=== PATIENT | female | born 1945 | race Caucasian/White ===

== ENCOUNTER 2017-08-17 09:30 | Day surgery (SDC) | payer BC, MEDICARE ==
--- NOTE | 2017-08-15 15:48 | HP ---
DATE OF SURGERY: 08/17/2017 ADMISSION DIAGNOSIS: Possible fistula. ANTICIPATED PROCEDURE: Colonoscopy. HISTORY OF PRESENT ILLNESS: Ultrasound positive. Seen and examined. Procedure discussed in detail and wished to proceed PAST MEDICAL HISTORY: ALLERGIES: NONE. MEDICATIONS: Multiple. PAST SURGICAL HISTORY: Back surgery, hysterectomy, leg ulcers. SOCIAL HISTORY: One pack per day. ETOH negative. FAMILY HISTORY: Negative. REVIEW OF SYSTEMS: Negative. PHYSICAL EXAMINATION: VITAL SIGNS: Normal. CHEST: Clear. COR: Regular. ABDOMEN: No palpable organomegaly or mass. IMPRESSION: Possible fistula. PLAN: Requiring colonoscopic examination.
[~2017-08-17 09:30] MED LIST: Lactated Ringers 1,000 ML IV SCH
[2017-08-17] MEDS ORDERED: DIPRIVAN 200 MG/20 ML IV ONE (09:31)
[2017-08-17] MEDS ORDERED: Lactated Ringers 1,000 ML IV ONE (09:44)
[2017-08-17] MEDS ORDERED: GlucaGen 1 MG IM ONE (13:20)
[2017-08-17 15:09] VITALS: PULSE 78
[2017-08-17 15:13] VITALS: BP 134/68
[2017-08-17 15:19] VITALS: O2SAT 97
--- NOTE | 2017-08-18 07:48 | OP ---
SURGERY DATE/TIME: 08/17/2017 130 PREOPERATIVE DIAGNOSIS: Possible fistula. POSTOPERATIVE DIAGNOSES: 1) No absolute fistula but the patient did have a severely diverticular stenotic segment of the sigmoid about 10 inches long and is certainly is a candidate for one. 2) Moderate internal-external hemorrhoids. 3) A 1.2 cm polyp of the cecum. PROCEDURE: Colonoscopy complete to cecum with hot polypectomy x1. SURGEON: Ean Theodore M.D. ANESTHESIA: MAC. COMPLICATIONS: None. CONDITION: Stable. INDICATION: The patient has possible fistula. DESCRIPTION OF PROCEDURE: He was taken to the endoscopy suite. MAC sedation provided. Anal digital examination satisfactory. Scope introduced. Scope advanced to the cecum. A 1.2 cm polyp in the cecum was taken with hot biopsy forceps to extinction. On circumferential withdrawal the sigmoid had a 10 inch segment of narrowing from diverticulosis. There were moderate internal and external hemorrhoids. A polyp had been taken so barium enema could not be ordered today. We will order a barium enema in the near future about six weeks from now.
== END 2017-08-17 15:00 | disposition home or self-care (01) ==
LOC: SDC 09:30
PROVIDERS: ATTEND Surgery
PROC: 0DBH8ZX Excision of Cecum, Via Natural or Artificial Opening Endoscopic, Diagnostic (ICD-10-PCS; principal; 2017-08-17)
DX: K63.5 Polyp of colon (principal); K57.30 Diverticulosis of large intestine without perforation or abscess without bleeding; K64.4 Residual hemorrhoidal skin tags; K64.8 Other hemorrhoids
CPT/HCPCS: 99100; J1610; J2704

== ENCOUNTER 2020-01-16 06:50 | Day surgery (SDC) | payer MEDICARE, BC ==
--- NOTE | 2019-12-13 11:36 | HP ---
DATE OF SURGERY: 12/19/2019 HISTORY OF PRESENT ILLNESS: The patient presents for follow up colonoscopy. She had a Garcia's procedure about 2018. Denies any current symptoms. PAST MEDICAL HISTORY: Hypothyroid. Neuropathy. Reflux. Hyperlipidemia. Anxiety. PAST SURGICAL HISTORY: Cholecystectomy. Garcia's procedure. Hysterectomy. Varicose vein stripping. ALLERGIES: NKDA. MEDICATIONS: Eliquis. Levothyroxine. Gabapentin. Omeprazole. Vitamin B. Atorvastatin. Tramadol. Xanax. FAMILY HISTORY: None reported. SOCIAL HISTORY: Smokes one and a half packs of cigarettes per day. Denies alcohol. REVIEW OF SYSTEMS: CONSTITUTIONAL: Denies fever or chills. CHEST: Denies shortness of breath. CVS: Denies chest pain. ABDOMEN: Denies nausea, vomiting, diarrhea, constipation or rectal bleeding. : Denies dysuria or hematuria. PHYSICAL EXAMINATION: GENERAL: No acute distress. CHEST: Nonlabored. No shortness of breath. CVS: Regular rate and rhythm. ABDOMEN: Soft, nontender to palpation. EXTREMITIES: No edema. NEUROLOGIC: Alert. PSYCHIATRIC: Appropriate. IMPRESSION: Status post Garcia's procedure. PLAN: Colonoscopy through ostomy and rectum. As dictated by Omaira Morales NP.
--- NOTE | 2020-01-13 12:25 | HP ---
DATE OF SURGERY: 01/16/2020 HISTORY OF PRESENT ILLNESS: The patient presents to the office in need of endoscopy. She has a history of a Garcia's procedure for a perforated diverticulitis with abscess and enterocolonic fistula. This was back in December 2017. It does not appear that she has had a colonoscopy since she had the surgery. We have attempted to try and she had some issues taking the prep. She denies any signs or symptoms currently. PAST MEDICAL HISTORY: Hypothyroidism. Coronary artery disease. Reflux. Depression. Hypertension. Heart disease. PAST SURGICAL HISTORY: Cholecystectomy. Garcia's procedure. Hysterectomy. Varicose vein procedure. ALLERGIES: NKDA. MEDICATIONS: Eliquis, levothyroxine, gabapentin, clonidine, omeprazole, vitamin D, atorvastatin, Xanax, Toprol, benazepril. FAMILY HISTORY: None reported. SOCIAL HISTORY: Smokes a half packs of cigarettes per day. REVIEW OF SYSTEMS: CONSTITUTIONAL: Denies fever or chills. CHEST: Denies shortness of breath. CVS: Denies chest pain. ABDOMEN: Denies nausea, vomiting, diarrhea, constipation or rectal bleeding. : Denies dysuria or hematuria. PHYSICAL EXAMINATION: GENERAL: No acute distress. CHEST: Nonlabored. No shortness of breath. CVS: Regular rate and rhythm. ABDOMEN: Soft, nontender to palpation. Ostomy pink. EXTREMITIES: No edema. NEUROLOGIC: Alert. PSYCHIATRIC: Appropriate. IMPRESSION: History of Garcia's procedure for perforated diverticulitis with abscess and enterocolonic fistula repair. No colonoscopy since procedure. PLAN: Colonoscopy per ostomy and rectum with Dr. Ean Theodore. As dictated by Omaira Morales NP.
[2020-01-16] MEDS ORDERED: Lactated Ringers 1,000 ML IV ONE (08:18)
[2020-01-16] MEDS ORDERED: Lactated Ringers 1,000 ML IV SCH (08:30)
[2020-01-16] MEDS ORDERED: Ketamine HCl 50 MG/ML ONE (09:17)
[2020-01-16] MEDS ORDERED: DIPRIVAN 200 MG/20 ML IV ONE (09:17)
[2020-01-16] MEDS ORDERED: APRESOLINE 20 MG/ML INJ IV ONE (10:30)
[2020-01-16] MEDS ORDERED: APRESOLINE 20 MG/ML INJ ONE (10:32)
[2020-01-16 11:08] VITALS: O2SAT 97
[2020-01-16 11:20] VITALS: BP 140/70; PULSE 67
--- NOTE | 2020-01-22 09:37 | OP ---
SURGERY DATE/TIME: 01/16/2020919 PREOPERATIVE DIAGNOSIS: Screening colonoscopy, previous colon resection. POSTOPERATIVE DIAGNOSES: 1) Anal spasm. 2) Mid transverse colon polyp x2. PROCEDURE: Colonoscopy both through anus and through ostomy with complete exam to cecum. SURGEON: Ean Theodore M.D. PREP: Excellent. ANESTHESIA: MAC. COMPLICATIONS: None. CONDITION: Stable. INDICATION: A 74 year old requiring evaluation. DESCRIPTION OF PROCEDURE: Taken to endoscopy. MAC sedation provided. Scope introduced through rectum. There was anal spasm this was broken. The scope was placed. The exam was satisfactory. The colostomy was then cannulated. Scope placed to the cecum. On circumferential withdrawal, base of the cecum, ileocecal valve, appendiceal orifice, ascending, hepatic, mid transverse. Two polyps were taken with hot biopsy forceps to extinction. Scope withdrawn. The patient tolerated the procedure satisfactorily. She initially had a Garcia procedure secondary to diverticulitis with abscess. There was no intent of taking this colostomy down.
== END 2020-01-16 11:30 | disposition home or self-care (01) ==
LOC: SDC 06:50
PROVIDERS: ATTEND Surgery
DX: Z09 Encounter for follow-up examination after completed treatment for conditions other than malignant neoplasm (principal); K59.4 Anal spasm; D12.3 Benign neoplasm of transverse colon; Z90.49 Acquired absence of other specified parts of digestive tract; Z79.899 Other long term (current) drug therapy; Z79.01 Long term (current) use of anticoagulants
CPT/HCPCS: 88305; 93005; 99100; J0360; J2704

== ENCOUNTER 2021-08-30 12:40 | Day surgery (SDC) | payer MEDICARE, BC ==
--- NOTE | 2021-08-26 11:56 | HP ---
DATE OF SURGERY: 08/30/2021 HISTORY OF PRESENT ILLNESS: The patient presented for Port-A-Cath. She is a patient of Dr. Darby. The patient has lung cancer. The patient needs access for chemotherapy infusions. The patient is also due for colonoscopy at this time. The patient has a history of Deborah's procedure for diverticulitis with abscess and no colonic fistula. PAST MEDICAL HISTORY: Coronary artery disease, hyperlipidemia, gastroesophageal reflux disease, anxiety, hypertension, hypothyroidism. PAST SURGICAL HISTORY: Cholecystectomy. Cardiac stents. Deborah's procedure. Hysterectomy. ALLERGIES: NKDA. MEDICATIONS: Eliquis, levothyroxine, Cardura, gabapentin, omeprazole, vitamin D, atorvastatin, Xanax, metoprolol, benazepril. FAMILY HISTORY: Cancer. SOCIAL HISTORY: Smokes half pack a day. REVIEW OF SYSTEMS: CONSTITUTIONAL: Denies fever or chills. CHEST: Denies shortness of breath. CVS: Denies chest pain. ABDOMEN: Denies abdominal pain, nausea, vomiting, diarrhea, constipation or rectal bleeding. PHYSICAL EXAMINATION: GENERAL: No acute distress. CHEST: Nonlabored. No shortness of breath. CVS: Regular rate and rhythm. ABDOMEN: Soft, nontender. IMPRESSION: 1) Inadequate access for chemotherapy infusion. 2) Screening colonoscopy. PLAN: Port-A-Cath insertion and colonoscopy with Dr. Ean Theodore. As dictated by Omaira Morales NP.
[~2021-08-30 12:40] MED LIST changes: +Lactated Ringers 1,000 ML IV ONE; -Lactated Ringers 1,000 ML IV SCH; +XYLOCAINE 1% HCL 20 ML MDV ONE
[2021-08-30] MEDS ORDERED: CEFAZOLIN 2 GM-D5W BAG** 2 GM/50 ML ML IV ONE (13:14)
[2021-08-30] MEDS ORDERED: Lactated Ringers 1,000 ML IV SCH (13:30)
[2021-08-30] MEDS ORDERED: CEFAZOLIN 2 GM-D5W BAG** 2 GM/50 ML ML IV SCH (13:30)
[2021-08-30] MEDS ORDERED: XYLOCAINE 1% HCL 20 ML MDV ONE (14:01)
[2021-08-30] MEDS ORDERED: DIPRIVAN 200 MG/20 ML IV ONE (15:21)
[2021-08-30] MEDS ORDERED: Xylocaine-Mpf 2% 5 Ml Vial ONE (15:21)
[2021-08-30] MEDS ORDERED: Versed 2 MG/2 ML Injection ONE (15:22)
[2021-08-30] MEDS ORDERED: SUBLIMAZE 100 MCG/2 ML ONE (15:22)
[2021-08-30] MEDS ORDERED: APRESOLINE 20 MG/ML INJ ONE (16:13)
--- NOTE | 2021-08-30 16:38 | XRAY ---
Indication: Port placement. Intraoperative fluoroscopy provided for 1 second. Single digital spot image submitted for interpretation demonstrates partially visualized left Port-A-Cath with tip projecting right of midline presumed SVC. Correlate with intraoperative findings/reported.
[2021-08-30 17:20] VITALS: O2SAT 95
[2021-08-30 18:12] VITALS: BP 141/60; PULSE 73
--- NOTE | 2021-08-31 08:41 | OP ---
SURGERY DATE/TIME: 08/30/2021 1527 PREOPERATIVE DIAGNOSES: 1) Inadequate access for chemotherapy, tunneled left subclavian port with fluoroscopic C-arm guidance. 2) Complete colonoscopy through the rectum and through the ostomy with basically normal findings. POSTOPERATIVE DIAGNOSES: 1) Inadequate access for chemotherapy, tunneled left subclavian port with fluoroscopic C-arm guidance. 2) Complete colonoscopy through the rectum and through the ostomy with basically normal findings. PROCEDURES: 1) Tunneled left subclavian port with fluoroscopic C-arm guidance. 2) Screening colonoscopy. SURGEON: Ean Theodore M.D. ANESTHESIA: MAC by Cornel Martinez CRNA. COMPLICATIONS: None. CONDITION: Stable. INDICATION: A patient requiring access for chemotherapy for colon cancer. She is also requiring a screening colonoscopy. The patient had a colostomy Deborah's procedure with rectal stump a few years ago. She has not had endoscopic exam. DESCRIPTION OF PROCEDURES: She was taken to surgery. General anesthetic. Routine prep and drape. Venipuncture obtained. Guide wire placed. Catheter is placed and aspirated nicely. Flushed nicely. Secured at 22 cm. Secured with 3-0 Prolene, 3-0 Vicryl, 4-0 Vicryl and Steri-Strips. Fluoroscopic image tip in the superior vena cava atrial junction. No pneumothorax. Ready to use. The colonoscopy was placed rectally. It was advanced up to 14 cm and it was totally normal. There was a little bit of mucous covering the staple line at the top. The scope was introduced through the colostomy. It was advanced 70 cm over the base of the cecum and it was normal. The patient tolerated the procedure satisfactorily. IMPRESSION: Normal examination today on both ends of the colon for complete exam.
== END 2021-08-30 18:15 | disposition home or self-care (01) ==
LOC: SDC 12:40
PROVIDERS: ATTEND Surgery
DX: Z12.11 Encounter for screening for malignant neoplasm of colon (principal); Z45.2 Encounter for adjustment and management of vascular access device; C34.90 Malignant neoplasm of unspecified part of unspecified bronchus or lung
CPT/HCPCS: 36571; 77001; C1788; G0121; 99100; J0360; J0690; J1642; J2250; J2704; J3010

== ENCOUNTER 2022-11-08 07:09 | Day surgery (SDC) | payer MEDICARE, BC ==
[~2022-11-08 07:09] MED LIST changes: -Lactated Ringers 1,000 ML IV ONE; +Marcaine Mpf 0.5% Vial 30 Ml ONE
[2022-11-08] MEDS ORDERED: CEFAZOLIN 2 GM-D5W BAG** 2 GM/50 ML ML IV ONE (07:38)
[2022-11-08] MEDS ORDERED: Lactated Ringers 1,000 ML IV ONE (07:38)
[2022-11-08 07:56] LABS: Absolute Neutrophil Ct (ANC) 4.98 x10^3/uL (1.4-6.9); BASOPHIL % 0.4 % (0.0-0.4); Basophil (Absolute #) 0.03 x10^3/uL (0-0.4); Eosinophil (Absolute #) 0.07 x10^3/uL (0-0.5); Hematocrit 35.5 % (35-47); Hemoglobin 12.3 g/dL (12.0-16.0); IMMATURE GRAN # 0.04 x10^3u/L (0.00-0.03); IMMATURE GRAN % 0.6 % (0.00-0.4); Lymphocyte (Absolute #) 1.21 x10^3/uL (1.0-4.6); Mean Cell Volume 101.7 fL (78-100); Mean Corpuscular Hemoglobin 35.2 pg (26-32); Mean Corpuscular Hgb Concent. 34.6 g/dL (32-36); Mean Platelet Volume 9.1 fL (7.5-11.0); Monocytes % 5.9 % (0.0-12.0); Neutrophil % 74.1 % (36.0-66.0); Platelet Count 163 x10^3/uL (150-450); Red Blood Count 3.49 x10^6/uL (4.1-5.4); Red Cell Distribution Width 12.7 % (11.5-14.0); White Blood Count 6.7 x10^3/uL (4.0-10.5)
[2022-11-08] MEDS ORDERED: Lactated Ringers 1,000 ML IV SCH (08:00)
[2022-11-08] MEDS ORDERED: CEFAZOLIN 2 GM-D5W BAG** 2 GM/50 ML ML IV SCH (08:00)
[2022-11-08 08:15] LABS: ALBUMIN 3.7 g/dL (3.5-5.0); ANION GAP 11.5 MEQ/L (5-15); BILIRUBIN,TOTAL 0.6 mg/dL (0.2-1.3); Calcium 8.9 mg/dL (8.4-10.2); Potassium 3.5 mmol/L (3.5-5.1); Total Protein 6.7 g/dL (6.3-8.2)
[2022-11-08 08:17] LABS: INR 0.94 (0.8-3.0); PROTIME 10.3 SECONDS (9.4-12.5); PTT 25.3 SECONDS (25.1-36.5)
[2022-11-08] MEDS ORDERED: DIPRIVAN 200 MG/20 ML IV ONE ×3 (08:29→09:39)
[2022-11-08] MEDS ORDERED: Versed 2 MG/2 ML Injection ONE (09:38)
[2022-11-08] MEDS ORDERED: SUBLIMAZE 100 MCG/2 ML ONE (09:39)
[2022-11-08] MEDS ORDERED: APRESOLINE 20 MG/ML INJ ONE (10:31)
[2022-11-08 12:07] VITALS: BP 172/68; PULSE 59; O2SAT 96
--- NOTE | 2022-11-08 20:24 | XRAY ---
Indication: Left foot exostectomy bone tumor. Intraoperative fluoroscopy provided for 11 seconds. 4 digital spot images submitted for interpretation demonstrates instrumentation tarsometatarsal articulation. Correlate with intraoperative findings/report.
--- NOTE | 2022-11-09 12:20 | OP ---
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 POSTOPERATIVE DIAGNOSES: 1) Osteochondroma left foot. 2) Deep peroneal nerve neuropathy. PROCEDURE: 1) Excision of bone tumor left foot. 2) Deep peroneal decompression. SURGEON: Jeremias Mooney DPM. RN TRANSITION: None. ANESTHESIA: Monitored anesthesia care. HEMOSTASIS: Ankle tourniquet set to 250 mm of Mercury for 14 total tourniquet minutes. ESTIMATED BLOOD LOSS: Minimal. INJECTABLES: 20 cc with 1:1 mixture of 1% lidocaine plain and 0.5% Marcaine plain injected in a V block-type fashion. INDICATIONS FOR PROCEDURE: Ayala is a very pleasant 77-year-old female who is well known to my service for osteochondroma over the dorsal aspect of the left foot which was found incidentally back in early 2021. At that time the patient was not having any significant pain we deferred proceeding with any surgical intervention at that time. The patient did start having a significant amount of pain in recent history and failed offloading with shoe gear and wished to proceed with the removal of the benign bone tumor. The patient did have vascular studies demonstrating that she did have adequate wound healing potential performed at [facility] prior to surgical intervention. She was also encouraged to discontinue cigarette smoking. At this time the patient has been consented for surgery extensively. The patient understands all risks, complications and benefits of surgical intervention at this time including but not limited to infection, hematoma, seroma, possibility of delayed wound healing, nonwound healing possibility of need for surgical intervention at a later date, possibility of failure of surgical intervention and worsening of the pain. The patient understands all of these risks and is willing to proceed. The patient and granddaughter have been provided opportunities to ask questions which were answered to their apparent satisfaction. It is with that we decided to proceed. DESCRIPTION OF PROCEDURE AND FINDINGS: The patient was brought into the OR and placed on the OR table in the supine position. At this time monitored anesthesia care was then administered and the patient was sedated. A well-padded ankle tourniquet was applied to the patient's left ankle and the left lower extremity was prepped and draped in the typical sterile fashion. At this time a V block was performed at the dorsal aspect of the left foot over the incision site consisting of 20 cc of a 1:1 mixture of 1% lidocaine plain and 0.5% Marcaine plain. Following this an Esmarch was utilized to exsanguinate the leg and the tourniquet was inflated. An incision was made utilizing a 15 blade being careful not to damage any neurovascular structures this was performed directly over the osteochondroma. Very quickly we encountered the osteochondroma. Osteotome and mallet were utilized to resect the bone tumor this was handed off the field for pathologic assessment. At this time attention was directed to the remnant of the bone and rongeur utilized to smooth down the bone so no adhesions or remaining sharp points were identified. After this the deep peroneal nerve was identified. The extensor hallucis brevis was then identified over its footprint and resected band of [place] surrounding this area were identified and seemed to be intact with a compression injury over the deep peroneal nerve in this area. The remaining nerve was then released from its soft tissue attachments and inspected at the distal end proximal aspect of the incision. At this time copious amounts of sterile saline were utilized to flush the surgical site. 4-0 Monocryl was utilized to repair the subcutaneous edges in a simple interrupted buried-type fashion and then a 3-0 Nylon was utilized with a Suturegard in order to keep the tension off of the edges. 3-0 Nylon was then utilized in horizontal mattress-type fashion to coapt the subcutaneous skin edges. A dressing consisting of Betadine, Adaptic, 4x4, Kerlix and KALPANA were applied to the left lower extremity. The patient was then reversed from anesthesia and returned to the postoperative anesthesia care unit with vital signs stable and vascular status intact. The patient handled the anesthesia as well as the procedure without significant complication. Postoperative orders as indicated in the patient's discharge chart.
== END 2022-11-08 11:40 | disposition home or self-care (01) ==
LOC: SDC 07:09
PROVIDERS: ATTEND Podiatrist Foot & Ankle Surgery
DX: D16.32 Benign neoplasm of short bones of left lower limb (principal); G57.32 Lesion of lateral popliteal nerve, left lower limb; I10 Essential (primary) hypertension; Z79.01 Long term (current) use of anticoagulants
CPT/HCPCS: 28100; 36415; 64704; 73630; 76000; 80053; 85025; 85610; 85730; 88304; 88311; 99100; J0360; J0690; J2250; J2704; J3010